=== PATIENT | male | born 1965 | race Caucasian/White ===

== ENCOUNTER 2018-08-29 20:46 | Emergency (ER) | payer SELFPAY ==
[2018-08-29 20:52] VITALS: BP 166/121; PULSE 78; RESP 14; TEMP 37.2; O2SAT 98
[2018-08-29 21:04] VITALS: BP 152/116
--- NOTE | 2018-08-29 21:09 | ED.GENADUL_ITS ---
Discharge Plan Disposition Patient Disposition: AGAINST MEDICAL ADVICE Condition: Stable Discharge Details Chief Complaint: RespSymp Clinical Impression: Cardiomegaly, Elevated BP without diagnosis of hypertension Primary Care Provider: None,None ED Provider: Diomedes Newsome Grant Meds and New Rx's Prescriptions: Continued clotrimazole 10 mg Blank 10 mg MUCOUS MEMBRANE DIRECTED RF: 0 loratadine [Claritin] 10 mg Tablet 10 mg PO DAILY RF: 0 Discontinued Symbicort 160-4.5 mcg/actuation Hfa Aerosol Inhaler 2 puff INHALATION BID RF: 0 Discharge Instructions Additional Instructions: You are leaving AGAINST MEDICAL ADVICE without further evaluation with EKG or labs. 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 Return to ED if you develop any of the symptoms we discussed or if you change your mind and want further evaluation. Medical Decision Making Patient currently with no wheezing or cough. States he currently feels fine. Is having intermittent episodes that sound like reactive airway/allergy triggered events. He has never smoked. He does not have a history of asthma. He did develop thrush using Symbicort but is already taking Chlortrimazole. I think we should discontinue the maintenance inhaler and give him a rescue inhaler instead. Depending on how often he needs to use this will help determine whether further evaluation and management needs to be done back in [place]. I would not put him on oral steroids at this point. I would get a chest x-ray and have discussed this with him. He is agreeable to that. Patient reports that he always has elevated blood pressure associated with hospital or ED visits. Typically if he checks it on the outside it normal. He reports a fairly long history of white coat syndrome. 22:10 - patient's chest x-ray does appear to have some cardiomegaly per my review. Preliminary radiology read agrees stating moderate cardiomegaly with some mild vascular congestion and hilar prominence. My concern would be with his elevated blood pressure that he has developed cardiomyopathy/LVH. This wheezing and cough may not necessarily be pulmonary related. On further questioning he reports that he never really checks his blood pressure on the outside only when he is at the doctor's office or in the ED. At that time it is always high. He does not actually have a primary care physician. I have recommended EKG and laboratory testing here tonight. He declines. He wants to speak to his girlfriend and follow-up with cardiology down in [place]. I think he warrants a cardiac work-up including ECHO and probably stress testing. I have discussed all of this at length with him. I have shown him his chest x- ray. He has agreed to return to our ED if he develops any type of chest pain, pressure, increasing shortness of breath while here. He denies having any type of chest pain or cardiac-like symptoms other than the shortness of breath which he does not associate with exertion. He will sign out AMA, with knowledge of potential cardiac issue, heart attack, . I am not going to give him an albuterol inhaler at this point as I am not convinced that this is reactive airway. I think we need to rule out cardiac etiology and I have made this clear to the patient. HPI General Mode of arrival: ambulatory . Date/Time Provider Initiated Documentation: 08/29/18 21:06 . Limitations to Documentation: no limitations . Information obtained by: patient . HPI Narrative: Patient presents to ED with complaints of intermittent episodes of coughing and wheezing. He does not smoke. He has no prior history of lung problems. He has had problems now for 2 to 3 weeks. He periodically gets shortness of breath, wheezing, cough. He has been using his girlfriend's Symbicort inhaler. He has subsequently developed thrush for which he got some clotrimazole to use. That is getting better. Currently does not have cough or wheezing or shortness of breath. He actually feels okay. He has no episodes with exertion. He has no chest pain, tightness, heaviness. He lives part-time up here and part-time in [place]. He does not truly have primary care and uses a walk-in center in [facility]. Related Data Home Medications Medication Instructions Recorded Confirmed clotrimazole 10 mg MUCOUS MEMBRANE DIRECTED 08/29/18 08/29/18 loratadine [Claritin] 10 mg PO DAILY 08/29/18 08/29/18 Allergies Allergy/AdvReac Type Severity Reaction Status Date / Time No Known Allergies Allergy Unverified 08/29/18 21:31 General Stated Complaint: RespSymp CLAU: 3 Review of Systems Review of Systems As documented in HPI otherwise negative as below. Const: no fever, chills, weakness Resp: positive cough, wheezing and SOB intermittently; no pleuritic pain CV: no CP, diaphoresis, edema, syncope GI: no abdominal pain, nausea, vomiting, diarrhea Neuro: no headache, numbness, focal weakness, confusion PFSH Medical History GERD (gastroesophageal reflux disease) (Chronic) S/P ORIF (open reduction internal fixation) fracture (Inactive) Social History Smoking/Tobacco Use Status: Never Do you feel safe at home: Yes Exam Narrative Exam Narrative: Vitals: Afebrile. Elevated blood pressure. Otherwise normal vital signs with normal O2 saturation. Const: Obese male in NAD. HEENT: NC/AT. Normal facial exam. TMs clear B. OP with thrush noted on the buccal membranes. Posterior OP normal. Eyes: Normal conjunctiva and sclera. Neck: Supple. Trachea midline. Lungs: Normal respiratory effort. Lungs are clear. No wheezing or rhonchi currently. Cor: RRR without murmur/gallop. Good radial pulses. Neuro: A+O x 3. CN grossly in tact. Good strength and no focal deficit. Course Vital Signs Temperature 99.0 F 08/29/18 20:52 Pulse 78 08/29/18 20:52 Respiratory Rate 14 08/29/18 20:52 Blood Pressure 166/121 H 08/29/18 20:52 Pulse Oximetry 98 08/29/18 20:52 Temperature 99.0 F 08/29/18 20:52 Temperature Source Temporal Artery Scan 08/29/18 20:52 Pulse 78 08/29/18 20:52 Respiratory Rate 14 08/29/18 20:52 Blood Pressure 152/116 H 08/29/18 21:04 Blood Pressure Position Sitting 08/29/18 20:52 Pulse Oximetry 98 08/29/18 20:52 Oxygen Delivery Method Room Air 08/29/18 20:52 Oxygen Flow Rate 0 08/29/18 20:52
--- NOTE | 2018-08-29 21:20 | DI.RAD_ITS ---
SYMPTOM/DIAGNOSIS: COUGH, WHEEZING PA AND LATERAL CHEST: There are no prior comparison exams. The heart is enlarged. The lungs are suboptimally inflated. There is mild vascular prominence which could be secondary to poor inflation vs vacular congestion. No focal infiltrate is seen. IMPRESSION: Cardiomegaly. Question of vascular congestion.
--- NOTE | 2018-08-29 21:32 | NUR.NOTE ---
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
--- NOTE | 2018-08-29 21:53 | DI.VRAD_ITS ---
EXAM: XR Chest, 2 Views EXAM DATE/TIME: 08/29/2018 21:22 CLINICAL HISTORY: 52 years old, male; Cough and wheezing TECHNIQUE: Imaging protocol: XR of the chest, 2 views. COMPARISON: No relevant prior studies available. FINDINGS: Lungs: Low lung volumes. No airspace consolidation. Pleural space: No pleural effusion. No pneumothorax. Heart/Mediastinum: Moderate cardiomegaly with mild vascular congestion. Vasculature: Mild hilar prominence right greater than left, probably vascular enlargement. Bones/joints: No acute fracture. IMPRESSION: 1. Moderate cardiomegaly with mild vascular congestion. 2. Mild hilar prominence right greater than left, probably vascular enlargement. Dictated and Authenticated by: Marge Vieira MD. Ordering:ADRIANE Hercules MD
--- NOTE | 2018-08-29 22:47 | NUR.NOTE ---
Nursing Note: patient left ama
== END 2018-08-29 22:51 | disposition left against medical advice (07) ==
PROVIDERS: Emergency Provider Emergency Medicine
DX: I42.9 Cardiomyopathy, unspecified (principal); R03.0 Elevated blood-pressure reading, without diagnosis of hypertension; Z53.29 Procedure and treatment not carried out because of patient's decision for other reasons
CPT/HCPCS: 99283; 71046